=== PATIENT | male | born 1945 | race Two or more races ===

== ENCOUNTER 2021-10-09 14:52 | Observation (INO) | payer OTHER ==
[~2021-10-09] VITALS: Ht 172.7 cm; Wt 103.1 kg
[2021-10-09 16:52] LABS: Basophils # (auto) 0.1 10 ^3/uL (0-0.2); Basophils % (auto) 1.2 % (0.0-2.0); Eosinophils # (auto) 0.6 10 ^3/uL (0-0.8); Hematocrit 44.6 % (41.0-53.0); Hemoglobin 15.3 g/dL (13.5-17.5); Lymphocytes # (auto) 1.8 10 ^3/uL (0.4-5.4); Lymphocytes % (auto) 19.6 % (10.0-50.0); Mean Corpuscular Hemoglobin 31.4 pg (28.0-32.0); Mean Corpuscular Hgb Conc. 34.3 g/dL (32.0-36.0); Mean Corpuscular Volume 91.4 fL (80.0-100.0); Monocytes # (auto) 0.8 10 ^3/uL (0-1.3); Monocytes % (auto) 8.7 % (0.0-12.0); Neutrophils # (auto) 5.9 10 ^3/uL (1.6-8.6); Neutrophils % (auto) 64.5 % (37.0-80.0); Nucleated Red Blood Cells % 0.1 %; Red Blood Cells 4.88 10^6/uL (4.5-5.90); Red Cell Distribution Width 14.5 % (11.8-14.3); White Blood Cell 9.1 10^3/uL (4.4-10.8)
[2021-10-09 17:13] LABS: Albumin 3.5 g/dL (3.4-5.0); Anion Gap 3 (5-15); Blood Urea Nitrogen 14 mg/dL (7-18); Calcium 8.8 mg/dL (8.5-10.1); Carbon Dioxide 29 mmol/L (21-32); Chloride 111 mmol/L (98-107); Glucose 96 mg/dL (74-106); Potassium 4.7 mmol/L (3.5-5.1); Sodium 143 mmol/L (136-145)
[2021-10-09 17:20] LABS: Alanine Aminotransferase 49 U/L (16-61); Alkaline Phosphatase 98 U/L (45-117); Aspartate Aminotransferase 27 U/L (15-37); BUN/Creatinine Ratio 16.9; Bilirubin, Total 0.4 mg/dL (0.2-1.0); GFR African American 116 mL/min; GFR Non-African American 96 mL/min; Total Protein 7.3 g/dL (6.4-8.2)
[2021-10-09] MEDS ORDERED: IPRATROPIUM BROM 0.5 MG/2.5ML INH SOL NEB ONE (18:15)
[2021-10-09] MEDS ORDERED: ALBUTEROL SULF 2.5 MG/0.5ML(0.5%) NEB SOLN NEB ONE (18:15)
[2021-10-09] MEDS ORDERED: NAPROXEN 500 MG TAB PO ONE (21:45)
[2021-10-09] MEDS: NITROGLYCERIN 0.4 MG SL TAB SL ONE ×2 (21:54→21:57)
[2021-10-09] MEDS: ASPirin 325 MG TAB PO ONE ×2 (21:54→21:57)
[2021-10-09] MEDS ORDERED: MORPHINE SULFATE INJ 2 MG/ml SYRG IV PRN (22:00)
[2021-10-09] MEDS ORDERED: PANTOPRAZOLE 40 MG TAB PO ONE ×2 (22:00→22:15)
[2021-10-09] MEDS ORDERED: NITROGLYCERIN 0.4 MG SL TAB SL PRN (22:00)
[2021-10-09] MEDS ORDERED: HEPARIN SODIUM (PORCINE) 5000 UNITS/ML 1ML VIAL IV ONE (22:00)
[2021-10-09] MEDS: ALBUTEROL SULF 2.5 MG/0.5ML(0.5%) NEB SOLN NEB SCH (23:15)
[2021-10-09 23:18] VITALS: BP 161/80
[2021-10-10 01:04] VITALS: BP 163/90
[2021-10-10] MEDS: ALBUTEROL SULF 2.5 MG/0.5ML(0.5%) NEB SOLN NEB SCH ×4 (02:44→21:58)
[2021-10-10 05:00] VITALS: BP 150/99
[2021-10-10 08:56] VITALS: BP 138/84
[2021-10-10 13:00] VITALS: BP 139/103
[2021-10-10] MEDS ORDERED: hydrALAZINE HCL 20 MG/ML VL IV PRN (15:30)
[2021-10-10 16:40] VITALS: BP 150/87
[2021-10-10] MEDS ORDERED: ACETAMINOPHEN 325 MG TAB PO ONE (17:15)
[2021-10-10 22:00] VITALS: BP 127/86
[2021-10-10] MEDS ORDERED: ATORVASTATIN 20 MG TAB PO SCH (22:00)
[2021-10-10] MEDS: METOPROLOL TARTRATE 25 MG TAB PO SCH (23:07)
[2021-10-10] MEDS: FAMOTIDINE 20 MG TAB PO SCH (23:07)
[2021-10-11] MEDS ORDERED: ACETAMINOPHEN 325 MG TAB PO PRN (02:00)
[2021-10-11] MEDS ORDERED: TAMS0.4C36 PO (03:25)
[2021-10-11] MEDS ORDERED: LISI-716 PO (03:25)
[2021-10-11] MEDS ORDERED: ATOR-47 PO (03:25)
[2021-10-11] MEDS ORDERED: CARV6.2551 PO (03:25)
[2021-10-11] MEDS ORDERED: ASPI-543 PO (03:25)
[2021-10-11 05:00] VITALS: BP 145/90
[2021-10-11] MEDS: ALBUTEROL SULF 2.5 MG/0.5ML(0.5%) NEB SOLN NEB SCH ×4 (05:49→14:19)
[2021-10-11 07:05] LABS: Potassium 3.9 mmol/L (3.5-5.1)
[2021-10-11 07:15] LABS: Magnesium 2.4 mg/dL (1.6-2.6)
[2021-10-11] MEDS ORDERED: ADENOSINE 87 MG in GIVE UN-DILUTED 0 ML IV STA (08:38)
[2021-10-11 08:50] VITALS: BP 140/82
[2021-10-11] MEDS: FAMOTIDINE 20 MG TAB PO SCH (10:00)
[2021-10-11] MEDS ORDERED: ENOXAPARIN SOD 40 MG/0.4 ML SYRINGE SC SCH (10:00)
[2021-10-11] MEDS: METOPROLOL TARTRATE 25 MG TAB PO SCH (10:00)
[2021-10-11] MEDS ORDERED: ASPirin-EC 81 mg tab PO SCH (10:00)
[2021-10-11 12:50] VITALS: BP 135/81
[2021-10-11 16:20] VITALS: BP 132/69
[2021-10-11] MEDS ORDERED: TAMSULOSIN HYDROCHLORIDE 0.4 MG CAP PO SCH (18:00)
== END 2021-10-11 17:00 | disposition home or self-care (01) ==
LOC: ER 14:52 → TELE 21:59 → TELE-WESTW 23:28
PROVIDERS: ADMIT Internal Medicine; ATTEND Internal Medicine
DX: M94.0 Chondrocostal junction syndrome [Tietze] (principal); Z20.822 Contact with and (suspected) exposure to COVID-19; E11.9 Type 2 diabetes mellitus without complications; I10 Essential (primary) hypertension; I25.10 Atherosclerotic heart disease of native coronary artery without angina pectoris; E66.9 Obesity, unspecified; I25.2 Old myocardial infarction; J44.9 Chronic obstructive pulmonary disease, unspecified; E78.5 Hyperlipidemia, unspecified; Z95.5 Presence of coronary angioplasty implant and graft; Z79.899 Other long term (current) drug therapy
CPT/HCPCS: 36415; 71045; 78452; 80048; 80053; 80061; 82306; 83036; 83735; 83880; 84443; 84484; 85025; 87426; 93005; 93017; 93306; 94640; 94660; 96374; 99285; A9500; G0378; J0153; J7644